=== PATIENT | male | born 1985 | race African-American/Black ===

== ENCOUNTER 2016-12-01 18:01 | Emergency (ER) | payer OTHER ==
[~2016-12-01] VITALS: Ht 177.8 cm; Wt 87.2 kg
[2016-12-01 21:43] VITALS: BP 129/83
[2016-12-03 22:37] LABS: QGTB-NIL 0.07 IU/mL (()); TB AG-NIL 0.85 IU/mL (())
== END 2016-12-01 21:43 | disposition home or self-care (01) ==
LOC: EME 18:01
PROVIDERS: Nurse Practitioner Family
DX: Z11.1 Encounter for screening for respiratory tuberculosis (principal); R76.11 Nonspecific reaction to tuberculin skin test without active tuberculosis
CPT/HCPCS: 86480 90; 99281; 99283